=== PATIENT | female | born 1995 ===

== ENCOUNTER 2018-11-23 04:57 | Emergency (ER) | payer SELFPAY ==
[2018-11-23] MEDS ORDERED: TYLENOL PO ONE (05:05)
[2018-11-23] MEDS ORDERED: TYLENOL ONE (05:10)
[2018-11-23 05:14] VITALS: BP 119/85
[2018-11-23] MEDS ORDERED: IBUPROFEN PO ONE (05:56)
[2018-11-23] MEDS ORDERED: AUGMENTIN 875 MG PO ONE (05:56)
--- NOTE | 2018-11-23 06:06 | Emergency Department Report ---
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 patient refuses medical transcription supervisor line patient complains of right ear pain and fever 2 days now no MAXIMUM TEMPERATURE at home no fever noted at triage at 98.0 Fahrenheit patient complains of ear pain with tinnitus i s no nausea vomiting no dizziness no lightheadedness symptoms exacerbated by movement and position symptoms relieved by rest MD complaint: ear pain Onset/Timin -: days(s) Location: R ear Severity: moderate Severity scale (0 -10): 4 Quality: aching Consistency: intermittent Improves with: rest Worsens with: position, movement Associated Symptoms: fever, tinnitus - Related Data Previous Rx's Medication Instructions Recorded Last Taken Type Amoxicillin/Potassium Clav 1 each PO BID 10 Days #20 tablet 11/23/18 Unknown Rx [Augmentin 875-125 Tablet] Ibuprofen 800 mg PO TID #30 tablet 11/23/18 Unknown Rx Allergies Allergy/AdvReac Type Severity Reaction Status Date / Time No Known Allergies Allergy Unverified 11/23/18 05:09 ED Dental HPI - General Chief complaint: Earache Stated complaint: RT EAR PAIN Time Seen by Provider: 11/23/18 05:45 Source: patient, medical transcription supervisor Mode of arrival: Ambulatory Limitations: Language Barrier - Related Data Previous Rx's Medication Instructions Recorded Last Taken Type Amoxicillin/Potassium Clav 1 each PO BID 10 Days #20 tablet 11/23/18 Unknown Rx [Augmentin 875-125 Tablet] Ibuprofen 800 mg PO TID #30 tablet 11/23/18 Unknown Rx Allergies Allergy/AdvReac Type Severity Reaction Status Date / Time No Known Allergies Allergy Unverified 11/23/18 05:09 ED Review of Systems ROS: Stated complaint: RT EAR PAIN Other details as noted in HPI Constitutional: fever. denies: chills Eyes: denies: eye pain, eye discharge, vision change ENT: ear pain Respiratory: denies: cough, shortness of breath, wheezing Cardiovascular: denies: chest pain, palpitations Endocrine: no symptoms reported Gastrointestinal: denies: abdominal pain, nausea, vomiting, diarrhea Genitourinary: denies: urgency, dysuria, discharge Musculoskeletal: denies: back pain, joint swelling, arthralgia Skin: denies: rash, lesions Neurological: denies: headache, weakness, paresthesias Psychiatric: denies: anxiety, depression Hematological/Lymphatic: denies: easy bleeding, easy bruising ED Past Medical Hx - Past Medical History Previous Medical History?: No - Surgical History Past Surgical History?: Yes Additional Surgical History: breast implants 2016 - Social History Smoking Status: Never Smoker Substance Use Type: None - Medications Home Medications: Home Medications Medication Instructions Recorded Confirmed Last Taken Type Amoxicillin/Potassium Clav 1 each PO BID 10 Days #20 tablet 11/23/18 Unknown Rx [Augmentin 875-125 Tablet] Ibuprofen 800 mg PO TID #30 tablet 11/23/18 Unknown Rx ED Physical Exam - General Limitations: Language Barrier General appearance: alert, in no apparent distress - Head Head exam: Present: atraumatic, normocephalic - Eye Eye exam: Present: normal appearance, PERRL, EOMI Pupils: Present: normal accommodation - ENT ENT exam: Present: mucous membranes moist - Expanded ENT Exam Expanded TM/Canal exam: Erythema: Right TM, Left TM, Effusion: Right TM, Canal Tenderness: Right TM Mouth exam: Absent: trismus Teeth exam: Present: normal inspection Throat exam: Positive: normal inspection - Neck Neck exam: Present: normal inspection, full ROM. Absent: tenderness, me ningismus, lymphadenopathy, thyromegaly - Respiratory Respiratory exam: Present: normal lung sounds bilaterally. Absent: respiratory distress, wheezes, stridor, chest wall tenderness - Cardiovascular Cardiovascular Exam: Present: regular rate, normal rhythm, normal heart sounds. Absent: systolic murmur, diastolic murmur, rubs, gallop - GI/Abdominal GI/Abdominal exam: Present: soft, normal bowel sounds - Rectal Rectal exam: Present: deferred - Extremities Exam Extremities exam: Present: normal inspection, full ROM, normal capillary refill. Absent: tenderness, pedal edema, joint swelling, calf tenderness - Back Exam Back exam: Present: normal inspection, full ROM. Absent: rash noted - Neurological Exam Neurological exam: Present: alert, oriented X3, CN II-XII intact, normal gait, reflexes normal - Psychiatric Psychiatric exam: Present: normal affect, normal mood - Skin Skin exam: Present: warm, dry, intact, normal color. Absent: rash ED Course Vital Signs 11/23/18 05:09 Temperature 98 F Pulse Rate 118 H Respiratory 18 Rate Blood Pressure 119/85 O2 Sat by Pulse 99 Oximetry ED Medical Decision Making - Medical Decision Making This is AOM Right ear, plan: Augmentin, Ibuprofen, follow up with pcp in 2-3 days pt given referral to [facility]3 days will return to ed if symptoms worsen, pt verbalized agreement and understanding of same. Critical care attestation.: If time is entered above; I have spent that time in minutes in the direct care of this critically ill patient, excluding procedure time. ED Disposition Clinical Impression: AOM (acute otitis media) Qualifiers: Otitis media type: serous Laterality: right Recurrence: non-recurrent Qualified Code(s): H65.01 - Acute serous otitis media, right ear Disposition: TO HOME OR SELFCARE Is pt being admited?: No Does the pt Need Aspirin: No Condition: Stable Instructions: Otitis Media (ED) Prescriptions: Amoxicillin/Potassium Clav [Augmentin 875-125 Tablet] 1 each PO BID 10 Days #20 tablet Ibuprofen 800 mg PO TID #30 tablet Referrals: [facility] [Outside] - 3-5 Days Forms: Work/School Release Form(ED) Time of Disposition: 06:08 Print Language: BRAZILIAN
== END 2018-11-23 06:24 | disposition home or self-care (01) ==
LOC: ED 04:57
DX: H65.01 Acute serous otitis media, right ear (principal)
CPT/HCPCS: 99283